=== PATIENT | female | born 1985 | race African-American/Black ===

== ENCOUNTER 2016-08-26 21:38 | Emergency (ER) | payer SELFPAY ==
[~2016-08-26] VITALS: Ht 170.2 cm; Wt 65.8 kg
[~2016-08-26 21:38] MED LIST: ALBUTEROL SULF8.5 GM INH; HYDROXYZINE HCL25 M1 PO; KENALOG 0.1% CR15 GM APPLIC; NKM; PREDNISONE20 M1 PO; PROMETHAZINE V237 ML ORAL; ZITHROMAX250 MG ORAL
[2016-08-26 22:05] VITALS: BP 120/81
--- NOTE | 2016-08-26 22:26 | Emergency Room Report ---
History of Present Illness General Chief Complaint: Vaginal Source: Patient Present Illness HPI This is a 30-year-old female with no past medical history. She presents with chief complaint of and spotting. Based on her date, she is approximately 7 weeks . This is her first . She had 2 positive urine brakes the test a week ago. Starting yesterday and today she has some mild spotting. No pain. No urinary complaint. No other symptoms. No history of STDs. Allergies: Coded Allergies: No Known Allergies (Unverified , 04/08/14) Patient History Past Medical History: none Past Surgical History: none Pertinent Family History: none Social History: Denies: smoking Last Menstrual Period: jun Now: Yes Immunizations: other Reviewed Nursing Documentation: PMH: Agreed, PSxH: Agreed Nursing Documentation-PMH Past Medical History: No Stated History Review of Systems Eye: Denies: blurred vision, eye pain ENT: Denies: ear pain, nose congestion, throat swelling Respiratory: Denies: cough, shortness of breath Cardiovascular: Denies: chest pain, palpitations Gastrointestinal: Denies: abdominal pain, diarrhea, nausea, vomiting Musculoskeletal: Denies: back pain, joint pain Skin: Denies: rash Neurological: Denies: headache, numbness Endocrine: Denies: increased thirst, increased urine Hematologic/Lymphatic: Denies: easy bruising All Other Systems: negative except mentioned in HPI Physical Exam Vital Signs Date Time Temp Pulse Resp B/P Pulse Ox O2 Delivery O2 Flow Rate FiO2 08/26/16 22:03 98.2 83 16 120/81 99 Room Air vitals normal Sp02 EP Interpretation: reviewed, normal General Appearance: well appearing, no apparent distress, alert Head: normocephalic, atraumatic Eyes: bilateral eye EOMI, bilateral eye PERRL ENT: hearing grossly normal, normal pharynx Neck: full range of motion, supple, no meningismus Respiratory: chest non-tender, lungs clear, normal breath sounds Cardiovascular #1: regular rate, rhythm, no murmur Gastrointestinal: normal bowel sounds, non tender, no mass, no organomegaly, no bruit, non-distended Musculoskeletal: back normal, gait/station normal, normal range of motion Psychiatric: mood/affect normal Skin: warm/dry Medical Decision Making Diagnostic Impression: Primary Impression: Threatened in early Additional Impression: UTI (urinary tract infection) during Qualified Codes: O23.41 - Unspecified infection of urinary tract in , first trimester ER Course Patient presents with vaginal spotting. No evidence of ectopic. This may be threatened miscarriage, early , blighted ovum to name a few. Will need followup. Lab Results Impression labs unremarkable CT/MRI/US Diagnostic Results CT/MRI/US Diagnostic Results : Imaging Test Ordered: Pelvic ultrasound Impression Read by radiologist. IUP seen with gestational sac only. No heart tone. Last Vital Signs Date Time Temp Pulse Resp B/P Pulse Ox O2 Delivery O2 Flow Rate FiO2 08/26/16 22:03 98.2 83 16 120/81 99 Room Air Status: improved Disposition: HOME, SELF-CARE Condition: Stable Scripts Nitrofurantoin Monohyd/M-Cryst* (MACROBID 100 MG*) 100 Mg Capsule 100 MG ORAL EVERY 12 HOURS, #14 CAP Prov: LEELEE KRISHNAMURTHY M.D. 08/26/16 Additional Instructions: Followup with OB within a week. You will need a repeat blood testing. Return if symptom worsen. LEELEE KRISHNAMURTHY M.D. Aug 26, 2016 22:26
[2016-08-26 23:05] LABS: BASOPHILS % (AUTO) 1.4 % (0.0-2.0); EOSINOPHILS % (AUTO) 1.6 % (0.0-3.0); LYMPHOCYTES % (AUTO) 42.4 % (20.0-45.0); MEAN CORPUSCULAR HEMOGLOBIN 27.6 PG (27.0-31.0); MEAN CORPUSCULAR HGB CONC 31.6 G/DL (32.0-36.0); MEAN CORPUSCULAR VOLUME 87 FL (80-99); MEAN PLATELET VOLUME 10.8 FL (6.5-10.1); MONOCYTES % (AUTO) 6.5 % (1.0-10.0); NEUTROPHILS % (AUTO) 48.2 % (45.0-75.0); PLATELET COUNT 228 K/UL (150-450); RED BLOOD COUNT 5.27 M/UL (4.20-5.40); RED CELL DISTRIBUTION WIDTH 12.8 % (11.6-14.8)
[2016-08-26 23:06] LABS: KETONES,URINE NEGATIVE (NEGATIVE); NITRITE,URINE POSITIVE (NEGATIVE); PH,URINE 6.5 (4.5-8.0); PROTEIN,URINE 1+ (NEGATIVE); UROBILINOGEN,URINE NORMAL MG/DL (0.0-1.0)
[2016-08-26 23:19] LABS: ANION GAP 14 (5-15); CALCIUM 9.5 mg/dL (8.6-10.2); CARBON DIOXIDE 25 mEQ/L (20-30); CHLORIDE 100 mEQ/L (98-107); CREATININE 0.7 mg/dL (0.5-0.9); GLOMERULAR FILTRATION RATE > 60 mL/min (>60); HEMOLYSIS 3; POTASSIUM 3.8 mEQ/L (3.4-4.9); SODIUM 139 mEQ/L (135-145)
[2016-08-26 23:29] LABS: APPEARANCE,URINE CLOUDY
[2016-08-26 23:32] LABS: LEUKOCYTE ESTERASE ,URINE NEGATIVE (NEGATIVE)
[2016-08-26 23:33] LABS: BACTERIA,URINE MANY /HPF; SQUAMOUS EPITHELIAL CELL,UR MANY /LPF (NONE/OCC)
[2016-08-26] MEDS ORDERED: NITROFURANTOIN100 M2 ORAL (23:49)
[2016-08-27] MEDS ORDERED: Cephalexin 500mg cap ORAL ONE
[2016-08-27 00:01] VITALS: BP 122/73
[2016-08-27 00:02] VITALS: BP 122/73
--- NOTE | 2016-08-27 17:07 | Diagnostic Imaging Report ---
Indication: PAIN , positive urine test last week Technique: Transabdominal and transvaginal images Comparison: None Findings: Uterus measures 8.1 cm in length by 4.6 cm transverse. Within the endometrium, there is a fluid collection which does not have a clear decidual reaction, but does contain a structure which resembles a yolk sac. No definite pole or heart activity. Left ovary measures 2.5 cm in length. Right ovary measures 3.3 cm length. No adnexal mass demonstrated. No free cul-de-sac fluid Impression: Positive for presumed intrauterine gestational sac,, demonstrating a yolk sac but no pole or heart activity. Dates and viability therefore not determinable. Correlate with serial beta hCGs, consider followup sonography as clinically indicated Negative for adnexal mass
== END 2016-08-27 00:02 | disposition home or self-care (01) ==
LOC: EMR 22:40
DX: O20.0 Threatened abortion (principal); O23.41 Unspecified infection of urinary tract in pregnancy, first trimester; Z3A.01 Less than 8 weeks gestation of pregnancy
CPT/HCPCS: 36415; 76830; 76856; 80048; 81003; 84702; 85025; 86850; 86900; 86901; 87086; 87181; 99284

== ENCOUNTER 2016-08-30 13:56 | Emergency (ER) | payer SELFPAY ==
[~2016-08-30] VITALS: Ht 170.2 cm; Wt 67.1 kg
[~2016-08-30 13:56] MED LIST changes: +NITROFURANTOIN100 M2 ORAL
[2016-08-30] MEDS ORDERED: Ketorolac 30mg Inj IV ONE (15:30)
[2016-08-30 15:32] LABS: BASOPHILS % (AUTO) 1.1 % (0.0-2.0); EOSINOPHILS % (AUTO) 1.1 % (0.0-3.0); LYMPHOCYTES % (AUTO) 30.5 % (20.0-45.0); MEAN CORPUSCULAR HEMOGLOBIN 28.1 PG (27.0-31.0); MEAN CORPUSCULAR HGB CONC 32.1 G/DL (32.0-36.0); MEAN CORPUSCULAR VOLUME 88 FL (80-99); MEAN PLATELET VOLUME 8.1 FL (6.5-10.1); MONOCYTES % (AUTO) 8.3 % (1.0-10.0); PLATELET COUNT 185 K/UL (150-450); RED BLOOD COUNT 4.26 M/UL (4.20-5.40); RED CELL DISTRIBUTION WIDTH 12.7 % (11.6-14.8); WHITE BLOOD COUNT 5.8 K/UL (4.8-10.8)
[2016-08-30 15:43] VITALS: BP 118/79
[2016-08-30 15:48] LABS: ALANINE AMINOTRANSFERASE 7 U/L (3-33); ALBUMIN/GLOBULIN RATIO 1.6 (1.0-2.7); ANION GAP 16 (5-15); ASPARTATE AMINO TRANSFERASE 12 U/L (5-40); CARBON DIOXIDE 23 mEQ/L (20-30); CHLORIDE 99 mEQ/L (98-107); CREATININE 0.7 mg/dL (0.5-0.9); GLOMERULAR FILTRATION RATE > 60 mL/min (>60); HEMOLYSIS 4; POTASSIUM 3.4 mEQ/L (3.4-4.9); SODIUM 138 mEQ/L (135-145)
[2016-08-30 17:06] LABS: APPEARANCE,URINE CLOUDY; KETONES,URINE 1+ (NEGATIVE); LEUKOCYTE ESTERASE ,URINE NEGATIVE (NEGATIVE); NITRITE,URINE NEGATIVE (NEGATIVE); PH,URINE 8 (4.5-8.0); PROTEIN,URINE 4+ (NEGATIVE); UROBILINOGEN,URINE NORMAL MG/DL (0.0-1.0)
[2016-08-30 17:16] LABS: RBC,URINE 15-20 /HPF (0 - 2)
[2016-08-30 17:17] LABS: BACTERIA,URINE FEW /HPF; SQUAMOUS EPITHELIAL CELL,UR FEW /LPF (NONE/OCC)
[2016-08-30 17:18] LABS: PROTHROMBIN TIME 10.6 SEC (9.30-11.50)
[2016-08-30 18:00] VITALS: BP 122/68
--- NOTE | 2016-08-30 19:45 | Emergency Room Report ---
History of Present Illness General Chief Complaint: Complications Source: Patient Present Illness HPI This patient is G2, P0 at approximately 7 weeks. The patient was seen here in the emergency department 5 days ago for spotting. She underwent an ultrasound at that time and was found to have a gestational sac without heart tones or an obvious fetus. She was diagnosed with a threatened . She states that over the past 24 hours she has had heavy bleeding and has been passing clots. She states that she continues to bleed. She does have a history of an elective and did have retained products despite D&C and had to go in for a revision D&C. The patient states that she has had cramping and bleeding. She has no other complaints. Allergies: Coded Allergies: No Known Allergies (Unverified , 04/08/14) Patient History Past Medical History: none Past Surgical History: other - D&C Social History: Reports: drug use - Marijuana, Denies: alcohol use, smoking Last Menstrual Period: 07/08/16 Now: Yes - 6 weeks Reviewed Nursing Documentation: PMH: Agreed, PSxH: Agreed Nursing Documentation-PMH Past Medical History: No Stated History Review of Systems All Other Systems: negative except mentioned in HPI Physical Exam Vital Signs Date Time Temp Pulse Resp B/P Pulse Ox O2 Delivery O2 Flow Rate FiO2 08/30/16 14:10 99.3 123 18 115/68 100 Room Air Sp02 EP Interpretation: reviewed, normal General Appearance: no apparent distress, alert, GCS 15, non-toxic Head: normocephalic, atraumatic Eyes: bilateral eye PERRL, bilateral eye normal inspection ENT: hearing grossly normal, normal pharynx, no angioedema, normal voice Neck: full range of motion, supple/symm/no masses Respiratory: chest non-tender, lungs clear, normal breath sounds, speaking full sentences Cardiovascular #1: regular rate, rhythm, no edema Gastrointestinal: normal bowel sounds, soft, non-distended, no guarding, no rebound, tenderness - TTP suprapubic and RLQ, LLQ diffusely Rectal: deferred Musculoskeletal: back normal, gait/station normal, normal range of motion, non- tender Neurologic: alert, oriented x3, responsive, motor strength/tone normal, sensory intact, speech normal Psychiatric: judgement/insight normal, memory normal, mood/affect normal, no suicidal/homicidal ideation Skin: normal color, no rash, warm/dry, well hydrated Medical Decision Making Diagnostic Impression: Primary Impression: Retained products of conception ER Course Patient has retained products of conception. The case was discussed with on- call OB Dr. Khan. Dr. Khan offered to admit her and have her undergo a D&C in the morning. However, the patient declined admission. She did agree to try of Methergine. The patient is stable and has a normal hemoglobin and hematocrit. She is well appearing overall. I did discuss with the patient that this may not be the definitive treatment and that she may still need to undergo a D&C. The patient requested to go home on the Methergine at this time. The patient states that she will followup with [facility] or another embedded software development engineer. 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 She indicated understanding. She was also given very close return precautions. Labs Test 08/30/16 15:06 08/30/16 16:31 White Blood Count 5.8 K/UL (4.8-10.8) Red Blood Count 4.26 M/UL (4.20-5.40) Hemoglobin 12.0 G/DL (12.0-16.0) Hematocrit 37.4 % (37.0-47.0) Mean Corpuscular Volume 88 FL (80-99) Mean Corpuscular Hemoglobin 28.1 PG (27.0-31.0) Mean Corpuscular Hemoglobin Concent 32.1 G/DL (32.0-36.0) Red Cell Distribution Width 12.7 % (11.6-14.8) Platelet Count 185 K/UL (150-450) Mean Platelet Volume 8.1 FL (6.5-10.1) Neutrophils (%) (Auto) 59.0 % (45.0-75.0) Lymphocytes (%) (Auto) 30.5 % (20.0-45.0) Monocytes (%) (Auto) 8.3 % (1.0-10.0) Eosinophils (%) (Auto) 1.1 % (0.0-3.0) Basophils (%) (Auto) 1.1 % (0.0-2.0) Sodium Level 138 mEQ/L (135-145) Potassium Level 3.4 mEQ/L (3.4-4.9) Chloride Level 99 mEQ/L (98-107) Carbon Dioxide Level 23 mEQ/L (20-30) Anion Gap 16 (5-15) Blood Urea Nitrogen 6 mg/dL (7-23) Creatinine 0.7 mg/dL (0.5-0.9) Estimat Glomerular Filtration Rate > 60 mL/min (>60) Glucose Level 97 mg/dL (74-106) Calcium Level 9.0 mg/dL (8.6-10.2) Total Bilirubin 0.4 mg/dL (0.0-1.2) Aspartate Amino Transf (AST/SGOT) 12 U/L (5-40) Alanine Aminotransferase (ALT/SGPT) 7 U/L (3-33) Alkaline Phosphatase 64 U/L (35-104) Total Protein 7.0 g/dL (6.6-8.7) Albumin 4.4 g/dL (3.5-5.2) Globulin 2.6 g/dL Albumin/Globulin Ratio 1.6 (1.0-2.7) Human Chorionic Gonadotropin, Quant 1525 mIU/mL Prothrombin Time 10.6 SEC (9.30-11.50) Prothromb Time International Ratio 1.0 (0.9-1.1) Activated Partial Thromboplast Time 26 SEC (23-33) Urine Color Red Urine Appearance Cloudy Urine pH 8 (4.5-8.0) Urine Specific [place] 1.015 (1.005-1.035) Urine Protein 4+ (NEGATIVE) Urine Glucose (UA) Negative (NEGATIVE) Urine Ketones 1+ (NEGATIVE) Urine Occult Blood 5+ (NEGATIVE) Urine Nitrite Negative (NEGATIVE) Urine Bilirubin Negative (NEGATIVE) Urine Urobilinogen Normal MG/DL (0.0-1.0) Urine Leukocyte Esterase Negative (NEGATIVE) Urine RBC 15-20 /HPF (0 - 2) Urine WBC 2-4 /HPF (0 - 2) Urine Squamous Epithelial Cells Few /LPF (NONE/OCC) Urine Bacteria Few /HPF (NONE) CT/MRI/US Diagnostic Results CT/MRI/US Diagnostic Results : Imaging Test Ordered: Pelvic US: Impression fluid and debris in endometrial canal Last Vital Signs Date Time Temp Pulse Resp B/P Pulse Ox O2 Delivery O2 Flow Rate FiO2 08/30/16 18:00 98.6 73 14 122/68 99 Room Air Status: improved Disposition: HOME, SELF-CARE Condition: Stable Referrals: NOT CHOSEN IPA/,REFERRING (PCP) IAIN NDIAYE D.O. Aug 30, 2016 19:45
[2016-08-30] MEDS ORDERED: METHYLERGONOVINE 0.2 MG ORAL ONE (20:00)
[2016-08-30] MEDS ORDERED: METHYLERGONOVI0.2 MG ORAL (20:37)
[2016-08-30 20:40] VITALS: BP 120/72
[2016-08-30] MEDS ORDERED: NORCO 5-325 TA1 EACH ORAL (20:42)
--- NOTE | 2016-08-31 13:54 | Diagnostic Imaging Report ---
Indication:Lower abdominal and pelvic pain Technique: Grayscale and duplex Doppler imaging of the pelvis performed utilizing a transabdominal scan and endovaginal scan. Comparison: None Findings: Heterogeneous blood noted within the endometrial canal. Small cystic component is also present. One should correlate clinically for a status. Certainly retained products of conception are not excluded. The uterus is anteverted. The left ovary is not seen. The right ovary appears normal measures 3.8 x 1.9 cm. Impression: Echogenic material within the uterine cavity could be products of conception and/or blood. Please correlate with status. Nonvisualization of the left ovary.
== END 2016-08-30 20:45 | disposition home or self-care (01) ==
LOC: EMR 15:05
DX: O02.1 Missed abortion (principal)
CPT/HCPCS: 36415; 76830; 76856; 80053; 81003; 84702; 85025; 85610; 85730; 86850; 86900; 86901; 96360; 96374; 99284; J1885

== ENCOUNTER 2017-04-23 23:51 | Emergency (ER) | payer MEDICAID ==
[~2017-04-23] VITALS: Ht 170.2 cm; Wt 66.7 kg
[~2017-04-23 23:51] MED LIST changes: +METHYLERGONOVI0.2 MG ORAL; +NORCO 5-325 TA1 EACH ORAL
[2017-04-24 00:08] VITALS: BP 129/89
[2017-04-24] MEDS ORDERED: Norco 5mg/325mg tab ORAL ONE (00:15)
--- NOTE | 2017-04-24 00:18 | Emergency Room Report ---
History of Present Illness General Chief Complaint: Pain Source: Patient Present Illness HPI This is a 31-year-old female with no significant past issue. She presents with suprapubic pain. Onset yesterday. Pain is sharp over the right suprapubic area. She does shave her pubic area. No fever chills with complaint of burning sensation. Is 9/10. There is no rash. No dysuria frequency. No history of STD. Allergies: Coded Allergies: No Known Allergies (Unverified , 04/08/14) Patient History Past Medical History: see triage record, old chart reviewed Past Surgical History: other Pertinent Family History: none Social History: Denies: drug use Last Menstrual Period: Mar Now: No Immunizations: other Reviewed Nursing Documentation: PMH: Agreed, PSxH: Agreed Nursing Documentation-PMH Past Medical History: No Stated History Review of Systems Eye: Denies: eye pain, blurred vision ENT: Denies: ear pain, nose congestion, throat swelling Respiratory: Denies: cough, shortness of breath Cardiovascular: Denies: chest pain, palpitations Gastrointestinal: Denies: abdominal pain, diarrhea, nausea, vomiting Musculoskeletal: Denies: back pain, joint pain Skin: Denies: rash Neurological: Denies: headache, numbness Endocrine: Denies: increased thirst, increased urine Hematologic/Lymphatic: Denies: easy bruising All Other Systems: negative except mentioned in HPI Physical Exam Vital Signs Date Time Temp Pulse Resp B/P (MAP) Pulse Ox O2 Delivery O2 Flow Rate FiO2 04/23/17 23:55 98.1 90 16 129/89 Room Air 04/24/17 00:08 100 vitals normal Sp02 EP Interpretation: reviewed, normal General Appearance: well appearing, no apparent distress, alert Head: normocephalic, atraumatic Eyes: bilateral eye PERRL, bilateral eye EOMI ENT: hearing grossly normal, normal pharynx Neck: full range of motion, supple, no meningismus Respiratory: chest non-tender, lungs clear, normal breath sounds Cardiovascular #1: regular rate, rhythm, no murmur Gastrointestinal: normal bowel sounds, non tender, no mass, no organomegaly, no bruit, non-distended Genitourinary: other - Exam done with female nurse shank burnisher. Patient has tenderness over the right suprapubic/vaginal area. No rash. No redness. No LOC. No fluctuant. Musculoskeletal: back normal, gait/station normal, normal range of motion Psychiatric: mood/affect normal Skin: warm/dry Medical Decision Making Diagnostic Impression: Primary Impression: Vaginal pain ER Course Patient presents with pain over the vaginal/pubic area. No evidence of any abscess seen. Because she she shaved, this may be beginning of an infection. Could also be herpes infection. She has no rash to show it. We'll discharge home. Last Vital Signs Date Time Temp Pulse Resp B/P (MAP) Pulse Ox O2 Delivery O2 Flow Rate FiO2 04/24/17 00:08 98.1 82 16 129/89 100 Room Air Status: improved Disposition: HOME, SELF-CARE Condition: Stable Scripts Hydrocodone/Acetaminophen 5-325* (HYDROCODONE/ACETAMINOPHEN 5-325*) 1 Each Tablet 1 TAB ORAL Q6H Y for For Pain, #20 TAB 0 Refills Prov: LEELEE KRISHNAMURTHY M.D. 04/24/17 Trimethoprim/Sulfamethoxazole 160/800* (BACTRIM DS TABLET*) 1 Each Tablet 1 TAB ORAL Q12H, #14 TAB 0 Refills Prov: LEELEE KRISHNAMURTHY M.D. 04/24/17 Patient Instructions: PAIN, Uncertain Cause (Acute) Additional Instructions: Followup with your DrEugenio in 3-5 days. Return if symptom worsen. LEELEE KRISHNAMURTHY M.D. Apr 24, 2017 00:18
[2017-04-24] MEDS ORDERED: HYDROCODON-ACE1 EA15 ORAL (00:30)
[2017-04-24] MEDS ORDERED: BACTRIM DS TAB1 EAC1 ORAL (00:30)
[2017-04-24 00:36] VITALS: BP 129/89
== END 2017-04-24 00:36 | disposition home or self-care (01) ==
LOC: EMR 04-24 00:28
DX: R10.2 Pelvic and perineal pain (principal)
CPT/HCPCS: 99283

== ENCOUNTER 2018-03-25 12:18 | Emergency (ER) | payer MEDICAID ==
[~2018-03-25] VITALS: Ht 170.2 cm; Wt 63.5 kg
[~2018-03-25 12:18] MED LIST changes: +BACTRIM DS TAB1 EAC1 ORAL; +HYDROCODON-ACE1 EA15 ORAL
--- NOTE | 2018-03-25 12:53 | Emergency Room Report ---
History of Present Illness General Chief Complaint: General Complaint Source: Patient Present Illness HPI 32-year-old female patient presents to ER complaining of generalize weakness and pain for the past 3 days. Reports that she went out drinking alcohol on Saturday night woke up the next day feeling hung over, states this when her symptoms began. Reports she has been resting since that time however still feeling fatigued. Denies fever, chest pain, shortness of breath, abdominal pain. Reports vomiting and diarrhea during that time, reports no blood in vomit or stool. Reports has been able tolerate fluids. Reports weakness of legs. Denies acute injury or trauma. Denies hitting head. Denies vertigo, phonophobia or photophobia. Allergies: Coded Allergies: No Known Allergies (Unverified , 04/08/14) Patient History Past Medical History: see triage record Last Menstrual Period: 03/13/18 Now: No Reviewed Nursing Documentation: PMH: Agreed; PSxH: Agreed Nursing Documentation-PMH Past Medical History: No Stated History Review of Systems All Other Systems: negative except mentioned in HPI Physical Exam Vital Signs Date Time Temp Pulse Resp B/P (MAP) Pulse Ox O2 Delivery O2 Flow Rate FiO2 03/25/18 12:29 99.1 106 20 123/83 98 Room Air 99.1 Sp02 EP Interpretation: reviewed, normal General Appearance: well appearing, no apparent distress, alert, GCS 15, non- toxic Head: normocephalic, atraumatic Eyes: bilateral eye normal inspection, bilateral eye PERRL ENT: hearing grossly normal, normal pharynx, no angioedema, normal voice, uvula midline, moist mucus membranes Neck: full range of motion Respiratory: lungs clear, normal breath sounds, no rhonchi, no respiratory distress, no accessory muscle use, no wheezing, speaking full sentences Cardiovascular #1: regular rate, rhythm, no edema Gastrointestinal: non tender, soft, no mass, non-distended, no guarding, no rebound, other - negative Rovsing, negative [place], negative obturator Musculoskeletal: back normal, digits/nails normal, gait/station normal, normal range of motion, non-tender Neurologic: alert, oriented x3, responsive, rpg programmer analyst III-XII nml as tested, motor strength/tone normal, sensory intact, cerebellar normal, normal gait, speech normal Skin: no rash Medical Decision Making PA Attestation Dr. Polk is my supervising Physician whom patient management has been discussed with. Diagnostic Impression: Primary Impression: Fatigue ER Course Pt. presents to the ED c/o generalized weakness. Ddx considered but are not limited to fatigue, dehydration, anemia, alcohol use , drug use, UTI, migraine, gastritis, food poisoning Will order labs rule out underlying etiology. no abdominal tenderness to palpation, does not require CT Abdomen imaging at this time. no focal neuro deficits, cranial nerves intact as tested, does not require imaging of head at this time. No injury to legs, full range of motion, does not require imaging of legs at this time. Vital signs: are WNL, pt. is afebrile ER COURSE: provide patient with IV fluids, Toradol, Zofran, GI cocktail CBC and CMP unremarkable, no elevation WBCs her LFTs, electrolytes normal UA unremarkable, no signs of infection Urine drug she shows positive opioids could be due to patient report taking a [place] pain pill. Advised patient not to take pain pills are not prescribed to her. positive THC, patient is to marijuana use. Urine negative. patient reports feeling better following treatment in the ER, patient's symptoms likely related to drinking last weekend and fatigue. Advised patient on rest. Ice patient on avoiding excessive alcohol use. Follow-up with primary care provider, discuss further treatment referral at that time. Take Tylenol for pain symptoms. Patient able tolerate by mouth fluids well in the ER. Patient okay for discharge to home. Able to ambulate independently without difficulty. drink plenty fluids. DISCHARGE: Rx provided Tylenol At this time pt is stable for d/c to home. Patient is resting comfortably, in no acute distress, nontoxic appearing, talking without difficulty. Patient to take medications as instructed Will provide with patient care instructions and any necessary prescriptions. Care plan and follow-up instructions provided. Patient instructed to follow-up with primary care provider in 3 - 5 days. Patient questions asked and answered. Patient reports understanding and agreement to treatment plan. ER precautions given. Patient instructed to return to ER immediately for any new or worsening of symptoms including but not limited to increasing SOB, persistent fever, chest pain, intractable vomiting. - Please note that this Emergency Department Report was dictated using [employer] molder technology software, occasionally this can lead to erroneous entry secondary to interpretation by the dictation equipment. Labs Test 03/25/18 12:57 03/25/18 13:00 Urine Color Yellow Urine Appearance Clear Urine pH 5 (4.5-8.0) Urine Specific [place] 1.025 (1.005-1.035) Urine Protein 2+ (NEGATIVE) Urine Glucose (UA) Negative (NEGATIVE) Urine Ketones 4+ (NEGATIVE) Urine Blood Negative (NEGATIVE) Urine Nitrite Negative (NEGATIVE) Urine Bilirubin Negative (NEGATIVE) Urine Urobilinogen 1 MG/DL (0.0-1.0) Urine Leukocyte Esterase 1+ (NEGATIVE) Urine RBC 0-2 /HPF (0 - 2) Urine WBC 2-4 /HPF (0 - 2) Urine Squamous Epithelial Cells Moderate /LPF (NONE/OCC) Urine Bacteria Few /HPF (NONE) Urine HCG, Qualitative Negative (NEGATIVE) Urine Opiates Screen Positive (NEGATIVE) Urine Barbiturates Screen Negative (NEGATIVE) Phencyclidine (PCP) Screen Negative (NEGATIVE) Urine Amphetamines Screen Negative (NEGATIVE) Urine Benzodiazepines Screen Negative (NEGATIVE) Urine Cocaine Screen Negative (NEGATIVE) Urine Marijuana (THC) Screen Positive (NEGATIVE) White Blood Count 6.6 K/UL (4.8-10.8) Red Blood Count 5.17 M/UL (4.20-5.40) Hemoglobin 14.3 G/DL (12.0-16.0) Hematocrit 44.5 % (37.0-47.0) Mean Corpuscular Volume 86 FL (80-99) Mean Corpuscular Hemoglobin 27.6 PG (27.0-31.0) Mean Corpuscular Hemoglobin Concent 32.1 G/DL (32.0-36.0) Red Cell Distribution Width 11.7 % (11.6-14.8) Platelet Count 242 K/UL (150-450) Mean Platelet Volume 8.5 FL (6.5-10.1) Neutrophils (%) (Auto) 68.5 % (45.0-75.0) Lymphocytes (%) (Auto) 23.0 % (20.0-45.0) Monocytes (%) (Auto) 7.1 % (1.0-10.0) Eosinophils (%) (Auto) 0.4 % (0.0-3.0) Basophils (%) (Auto) 1.0 % (0.0-2.0) Sodium Level 134 MMOL/L (136-145) Potassium Level 3.7 MMOL/L (3.5-5.1) Chloride Level 106 MMOL/L (98-107) Carbon Dioxide Level 25 MMOL/L (21-32) Blood Urea Nitrogen 8 mg/dL (7-18) Creatinine 0.9 MG/DL (0.55-1.30) Estimat Glomerular Filtration Rate > 60 mL/min (>60) Glucose Level 97 MG/DL (74-106) Calcium Level 9.4 MG/DL (8.5-10.1) Total Bilirubin 0.8 MG/DL (0.2-1.0) Aspartate Amino Transf (AST/SGOT) 15 U/L (15-37) Alanine Aminotransferase (ALT/SGPT) 19 U/L (12-78) Alkaline Phosphatase 69 U/L (46-116) Total Protein 8.9 G/DL (6.4-8.2) Albumin 4.5 G/DL (3.4-5.0) Globulin 4.4 g/dL Albumin/Globulin Ratio 1.0 (1.0-2.7) Lipase 78 U/L (73-393) Human Chorionic Gonadotropin, Quant < 1 mIU/mL (1-6) Last Vital Signs Date Time Temp Pulse Resp B/P (MAP) Pulse Ox O2 Delivery O2 Flow Rate FiO2 03/25/18 12:29 99.1 106 20 123/83 98 Room Air 99.1 Status: improved Disposition: HOME, SELF-CARE Condition: Stable Scripts Acetaminophen* (TYLENOL EXTRA STRENGTH*) 500 Mg Tablet 500 MG ORAL Q8H PRN for Prn Headache/Temp > 101, #30 TAB 0 Refills Prov: Earl Solomon 03/25/18 Patient Instructions: Alcohol Intoxication, [id number], Dehydration, Adult, [id number], Fatigue Additional Instructions: Followup with primary care provider in 3 -5 days. Drink plenty of fluids, do not smoke or use drugs. Avoid excessive alcohol intake. Take medications as directed. Patient questions asked and answered. ER precautions given, patient instructed to return to ER immediately for any new or worsening of symptoms. Earl Solomon Mar 25, 2018 12:53
[2018-03-25 13:00] VITALS: BP 123/83
[2018-03-25] MEDS ORDERED: Dicyclomine HCl 10mg/5ml oral soln ORAL ONE (13:00)
[2018-03-25] MEDS ORDERED: Lidocaine 2% Visc 15ml soln ORAL ONE (13:00)
[2018-03-25] MEDS ORDERED: Mylanta II UD 30ml ORAL ONE (13:00)
[2018-03-25] MEDS ORDERED: Ketorolac 30mg Inj IV ONE (13:00)
[2018-03-25 13:18] LABS: APPEARANCE,URINE CLEAR; BILIRUBIN, URINE NEGATIVE (NEGATIVE); GLUCOSE, URINE (UA) NEGATIVE (NEGATIVE); KETONES,URINE 4+ (NEGATIVE); LEUKOCYTE ESTERASE ,URINE 1+ (NEGATIVE); NITRITE,URINE NEGATIVE (NEGATIVE); PH,URINE 5 (4.5-8.0); PROTEIN,URINE 2+ (NEGATIVE); UROBILINOGEN,URINE 1 MG/DL (0.0-1.0)
[2018-03-25 13:20] LABS: EOSINOPHILS % (AUTO) 0.4 % (0.0-3.0); HEMATOCRIT 44.5 % (37.0-47.0); HEMOGLOBIN 14.3 G/DL (12.0-16.0); MEAN CORPUSCULAR VOLUME 86 FL (80-99); MONOCYTES % (AUTO) 7.1 % (1.0-10.0); NEUTROPHILS % (AUTO) 68.5 % (45.0-75.0); PLATELET COUNT 242 K/UL (150-450); RED BLOOD COUNT 5.17 M/UL (4.20-5.40); RED CELL DISTRIBUTION WIDTH 11.7 % (11.6-14.8); WHITE BLOOD COUNT 6.6 K/UL (4.8-10.8)
[2018-03-25 13:21] LABS: COLOR,URINE YELLOW
[2018-03-25 13:36] LABS: BLOOD UREA NITROGEN 8 mg/dL (7-18); CALCIUM 9.4 MG/DL (8.5-10.1); CARBON DIOXIDE 25 MMOL/L (21-32); CHLORIDE 106 MMOL/L (98-107); CREATININE 0.9 MG/DL (0.55-1.30); POTASSIUM 3.7 MMOL/L (3.5-5.1)
[2018-03-25 13:40] LABS: ALANINE AMINOTRANSFERASE 19 U/L (12-78); ALBUMIN 4.5 G/DL (3.4-5.0); ALKALINE PHOSPHATASE 69 U/L (46-116); ASPARTATE AMINO TRANSFERASE 15 U/L (15-37); BILIRUBIN,TOTAL 0.8 MG/DL (0.2-1.0)
[2018-03-25 13:43] LABS: SODIUM 134 MMOL/L (136-145)
[2018-03-25] MEDS ORDERED: TYLENOL EXTRA500 MG ORAL (14:21)
[2018-03-25 15:00] VITALS: BP 123/83
== END 2018-03-25 15:00 | disposition home or self-care (01) ==
LOC: EMR 13:30
DX: R53.83 Other fatigue (principal); R53.1 Weakness
CPT/HCPCS: 36415; 80053; 80307; 81003; 81025; 83690; 84702; 85025; 96374; 96375; 99284; J1885; J2405

== ENCOUNTER 2018-04-22 10:19 | Emergency (ER) | payer MEDICAID ==
[~2018-04-22] VITALS: Ht 170.2 cm; Wt 68.0 kg
[~2018-04-22 10:19] MED LIST changes: +TYLENOL EXTRA500 MG ORAL
[2018-04-22 10:37] VITALS: BP 128/87
[2018-04-22] MEDS ORDERED: NORCO 5-325 TA1 EACH ORAL (11:19)
[2018-04-22] MEDS ORDERED: SILVADENE20 GM TP (11:19)
[2018-04-22] MEDS ORDERED: Tetanus/Diptheria/Pertussis Vaccine 0.5ml Syr IM ONE (11:30)
[2018-04-22 11:36] VITALS: BP 128/87
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
== END 2018-04-22 11:36 | disposition home or self-care (01) ==
LOC: EMR 10:55
DX: T24.332A Burn of third degree of left lower leg, initial encounter (principal); T31.0 Burns involving less than 10% of body surface; X16.XXXA Contact with hot heating appliances, radiators and pipes, initial encounter; Y92.9 Unspecified place or not applicable; Z23 Encounter for immunization
CPT/HCPCS: 90471; 90715; 99283

== ENCOUNTER 2019-06-30 19:35 | Emergency (ER) | payer MEDICAID ==
[~2019-06-30] VITALS: Ht 170.2 cm; Wt 70.3 kg
[~2019-06-30 19:35] MED LIST changes: +SILVADENE20 GM TP
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
[2019-06-30 21:00] VITALS: BP 138/92
[2019-06-30] MEDS ORDERED: Acetaminophen 500mg (ES) tab ORAL ONE (21:00)
--- NOTE | 2019-07-01 14:19 | Diagnostic Imaging Report ---
Indication: Foot pain Comparison: None Findings: 3 views of the left foot were obtained. No acute fractures, malalignment, erosions or periostitis are identified. Soft tissues are unremarkable. Impression: No acute findings
== END 2019-06-30 21:05 | disposition home or self-care (01) ==
LOC: EMR 21:04
DX: S93.602A Unspecified sprain of left foot, initial encounter (principal); W22.8XXA Striking against or struck by other objects, initial encounter; Y92.9 Unspecified place or not applicable
CPT/HCPCS: 73630; Z7502; 99283